=== PATIENT | female | born 1975 | race Two or more races ===

== ENCOUNTER 2021-04-02 05:30 | Day surgery (SDC) | payer OTHER | END 2021-04-02 12:10 | disposition home or self-care (01) | LOC: AMB-ENDOS 05:30 | PROVIDERS: ATTEND Surgery | DX: D12.8 Benign neoplasm of rectum (principal); D13.2 Benign neoplasm of duodenum; Z20.822 Contact with and (suspected) exposure to COVID-19; Z12.11 Encounter for screening for malignant neoplasm of colon ==